=== PATIENT | female | born 1935 | race Caucasian/White ===

== ENCOUNTER 2017-05-30 06:59 | Day surgery (SDC) | payer OTHER ==
[2017-05-30 07:38] LABS: Protime INR 1.02
[2017-05-30] MEDS ORDERED: CYCLOPENTOLATE 1% OPTH 2 ML OPTH ONE ×2 (07:47→07:52)
[2017-05-30] MEDS ORDERED: PHENYLEPHRINE 10% OPTH 5ML OPTH ONE ×2 (07:47→07:52)
[2017-05-30] MEDS ORDERED: BUPIVACAINE 0.25% PF 10 ML VIAL ONE (07:50)
[2017-05-30] MEDS ORDERED: LIDOCAINE 2% MPF 5 ML VIAL ONE ×2 (07:50→08:28)
[2017-05-30] MEDS ORDERED: CYCLOPENTOLATE 1% OPTH 2 ML ONE (07:50)
[2017-05-30] MEDS ORDERED: TETRACAINE HCL 0.5% 2ML OPTH ONE (07:50)
[2017-05-30] MEDS ORDERED: NA CHLORIDE 0.9% 500 ML ONE (07:51)
[2017-05-30] MEDS ORDERED: PHENYLEPHRINE 10% OPTH 5ML ONE (07:51)
[2017-05-30] MEDS ORDERED: NS 0.9% VIAL 10 ML ONE (08:21)
[2017-05-30] MEDS ORDERED: DUOVISC 1 KIT OPTH ONE (08:22)
[2017-05-30] MEDS ORDERED: BALANCED SALT IRRIG PLAIN 500 ML BTL IRR ONE (08:22)
[2017-05-30] MEDS ORDERED: MOXIFLOXACIN HCL 10 DROPS/ML **OR USE OPTH ONE (08:27)
[2017-05-30] MEDS ORDERED: PROPOFOL 200 MG/20 ML VIAL IV ONE (08:28)
--- NOTE | 2017-05-30 08:46 | P.BOP ---
Preoperative diagnosis: Retained lens fragment OS Postoperative diagnosis: Same Primary procedure: Removal of lens fragment OS Estimated blood loss: None Anesthesia: Local (Subtenon's infusion with anethesia for eye surgery) Complications: None Implants: None Transferred to: Other (Day surgery) Condition: Good
[2017-05-30 09:01] VITALS: BP 111/54; TEMP 97; O2SAT 98
--- NOTE | 2017-05-30 19:18 | OP ---
Date of Procedure: 05/30/2017 Surgeon: Claudine Montoya MD Anesthesiologist: Josué Maria CRNA. Diagnosis: Retained lens fragment, OS (left eye). Procedure: Removal of lens fragment, OS (left eye). Anesthesia: Per eye surgery. Complications: None. Description Of Procedure: Patient's left eye was prepped with Betadine and draped. A 1:1 mixture of 2% Xylocaine and 0.25% bupivacaine was placed around the globe. Approximately 5 cc was used. The patient was brought to the operative room, where she was prepped and draped in the usual sterile fashion for ophthalmic surgery. A side-port incision was made superiorly and inferiorly. A bimanual I in A was used to removed the lens fragment. The incisions were inspected and found to be water tight. Vigamox was placed in the eye intra-camerally at the end of the procedure. No epinephrine was used for the procedure. Discharge Instructions: Ms. Lindo is discharged to home in good condition. She is to follow up with Dr. Montoya in the morning. LOGAN/PILAR Voice ID: [id number] Report ID: [id number] ANTON
== END 2017-05-30 09:21 | disposition home or self-care (01) ==
LOC: OR 06:59
PROVIDERS: ATTEND Ophthalmology Retina Specialist
PROC: 08P Eye, Removal (ICD-10-PCS; principal; 2017-05-30 08:30)
DX: H59.022 Cataract (lens) fragments in eye following cataract surgery, left eye (principal); H20.042 Secondary noninfectious iridocyclitis, left eye; H35.3130 Nonexudative age-related macular degeneration, bilateral, stage unspecified; H43.813 Vitreous degeneration, bilateral; I34.1 Nonrheumatic mitral (valve) prolapse; I10 Essential (primary) hypertension; I25.10 Atherosclerotic heart disease of native coronary artery without angina pectoris; M19.90 Unspecified osteoarthritis, unspecified site; E78.00 Pure hypercholesterolemia, unspecified; K21.9 Gastro-esophageal reflux disease without esophagitis; M81.0 Age-related osteoporosis without current pathological fracture; Z79.01 Long term (current) use of anticoagulants; Z88.8 Allergy status to other drugs, medicaments and biological substances; Z86.711 Personal history of pulmonary embolism; Z95.5 Presence of coronary angioplasty implant and graft; Z90.710 Acquired absence of both cervix and uterus; Z82.49 Family history of ischemic heart disease and other diseases of the circulatory system; Z82.3 Family history of stroke
CPT/HCPCS: 36415; 85610

== ENCOUNTER 2017-07-30 16:24 | Emergency (ER) | payer OTHER ==
--- NOTE | 2017-07-30 16:53 | RAD REPORT ---
EXAM DESCRIPTION: CT - [id number] - 07/30/2017 4:40 pm CLINICAL HISTORY: Fall, head and neck injury COMPARISON: MRI cervical spine July 2016 TECHNIQUE: Axial 5 mm thick images of the head were obtained. Axial 2 mm thick images of the cervic al spine were obtained with sagittal and coronal reconstruction images generated and reviewed. All CT scans are performed using dose optimization technique as appropriate and may include automated exposure control or mA/KV adjustment according to patient size. FINDINGS: No intracranial hemorrhage, mass, edema or acute intracranial finding. No acute cortical b ased infarction. Mild to moderate atrophy and mild chronic ischemic changes are present. Ventricular size is in proportion. No extra-axial fluid collections. Mastoid air cells and paranasal sinuses are clear. No globe or orbit abnormality seen. Cervical body height and alignment are normal. C5-6 disc space narrowing is present similar to the [facility] MRI study. No fracture or acute bony abnormality. C5-6 bony foraminal encroachment is present f rom uncovertebral joint hypertrophy. Central canal detail is inherently limited. No paraspinal mass or hematoma. IMPRESSION: Atrophy and chronic ischemic changes are present with no hemorrhage or other acute intra cranial finding. Cervical spine degenerative change as detailed. No fracture or acute finding seen.
--- NOTE | 2017-07-30 16:55 | RAD REPORT ---
EXAM DESCRIPTION: Shoulder Right 2 View - 07/30/2017 4:47 pm CLINICAL HISTORY: Fall, shoulder pain COMPARISON: None. TECHNIQUE: Internal and external rotation views of the right shoulder were obtained. FINDINGS: Transverse fracture of the surgical neck is present. There is evidence for impaction along the medial margin of the fracture. No pathologic bone process seen. No dislocation seen though there is probable laxity of the joint capsule. Acromial humeral joint space is widened. Posterior dislocat ion is doubtful. AC joint degenerative change present with clavicle and acromion inferiorly directed spurring. No rib or upper lung parenchymal acute finding. IMPRESSION: Two-view shoulder examination shows evidence for surgical neck fracture with probable im paction medial margin.
[2017-07-30] MEDS ORDERED: HYDROCODONE/APAP 10/325 TAB ONE ×2 (16:58→21:25)
[2017-07-30] MEDS ORDERED: ONDANSETRON 4 MG/2 ML VIAL ONE (17:11)
[2017-07-30] MEDS ORDERED: MORPHINE 4 MG/ML SYR ONE (17:11)
[2017-07-30] MEDS ORDERED: TETANUS & DIPHTHERIA TOX,ADULT 0.5 ML VIAL ONE (18:25)
[2017-07-30] MEDS ORDERED: LIDOCAINE 1% MPF 2 ML AMPULE ONE (18:39)
--- NOTE | 2017-07-30 18:55 | ER ---
Nurse's Notes [facility] Name: Kaitlin Lindo Age: 81 yrs Sex: Female : 1935 Arrival Date: 07/30/2017 Time: 16:31 Bed 24 Private MD: Hector Mcghee Diagnosis: Unspecified nondisplaced fracture of surgical neck of right humerus;Superficial injury of head;Other slipping, tripping and stumbling and falls;Laceration without foreign body of scalp Presentation: 07/30 16:32 Presenting complaint: EMS states: right shoulder pain due to fall. small laceration to tl3 back of scalp, no LOC. Transition of care: patient was not received from another setting of care. Onset of symptoms was July 30, 2017. Risk Assessment: Do you want to hurt yourself or someone else? Patient reports no desire to harm self or others. Initial Sepsis Screen: Does the patient meet any 2 criteria? No. Patient's initial sepsis screen is negative. Does the patient have a suspected source of infection? No. Patient's initial sepsis screen is negative. Care prior to arrival: sling. 16:32 Method Of Arrival: EMS: [facility] tl3 16:32 Acuity: IMANI 3 tl3 22:15 Mechanism of Injury: Fall. Trauma event details: Injury occurred in the [address], Injury occurred: at home. Injury occurred: July 30, 2017. Triage Assessment: 16:43 General: Appears uncomfortable, slender, well groomed, well developed, well nourished, tl3 Behavior is calm, cooperative, appropriate for age. Pain: Complains of pain in anterior aspect of right shoulder. EENT: No deficits noted. No signs and/or symptoms were reported regarding the EENT system. Neuro: No deficits noted. Level of Consciousness is awake, alert, obeys commands, Oriented to person, place, time, situation, Appropriate for age. Cardiovascular: No deficits noted. Heart tones S1 S2 present Patient's skin is warm and dry. Respiratory: No deficits noted. Airway is patent Respiratory effort is even, unlabored, Respiratory pattern is regular, symmetrical, Breath sounds are clear bilaterally. GI: No deficits noted. No signs and/or symptoms were reported involving the gastrointestinal system. : No deficits noted. No signs and/or symptoms were reported regarding the genitourinary system. Derm: No deficits noted. Wound noted back of scalp Wound is small laceration, no active bleeding. Musculoskeletal: Range of motion: limited in right shoulder. Injury Description: pt fell at home in the bedroom and landed on right shoulder then hit head on door frame, no LOC. Historical: - Home Meds: 16:43 vitamin E 400 unit Oral cap daily [Active]; cranberry 500 mg oral cap daily [Active]; tl3 xeralto 20 mg daily [Active]; - Immunization history:: Adult Immunizations up to date. - Social history:: Smoking status: Patient/guardian denies using tobacco, never smoked. - Immunization history: Last tetanus immunization: unknown. - Ebola Screening: : Patient denies travel to an Ebola-affected area in the 21 days before illness onset. Screenin:47 Abuse screen: Denies threats or abuse. Nutritional screening: No deficits noted. tl3 Tuberculosis screening: No symptoms or risk factors identified. Fall Risk Fall in past 12 months (25 points). Primary Survey: 20:30 Breathing/Chest: Respiratory pattern: regular, Respiratory effort: spontaneous, Breath eb1 sounds: clear. 22:08 Circulation: Cardiac rhythm: sinus rhythm. Circulation: Pulses: palpable right radial eb1 artery, right posterior tibial artery, left radial artery and left posterior tibial artery. Skin color: pink, Skin temperature: warm, dry. Disability Alert. 22:12 Reassessment Breathing/Chest Respiratory pattern Regular Respiratory effort Spontaneous eb1 Unlabored Breath sounds Clear Chest inspection Symmetrical Circulation. Assessment: 16:47 Reassessment: Patient is alert, oriented x 3, equal unlabored respirations, skin tl3 warm/dry/pink. pt just returned from CT and X-ray. 18:25 Reassessment: assisted patient onto bedpan and cleaned of small bowel incontinence. Pt ss is grateful. Respirations remain even and unlabored. Call light remains within reach. 18:58 Reassessment: Patient appears in no apparent distress at this time. No changes from tl3 previously documented assessment. Patient and/or family updated on plan of care and expected duration. Pain level reassessed. Patient is alert, oriented x 3, equal unlabored respirations, skin warm/dry/pink. pt tolerated laceration repair well. Vital Signs: 16:43 BP 146 / 125; Pulse 67; Resp 18; Temp 98.7(O); Pulse Ox 99% ; tl3 18:58 BP 167 / 143; Pulse 73; Resp 18; Pulse Ox 100% ; tl3 22:07 BP 147 / 82; Pulse 80; Resp 20; Temp 98.2; Pulse Ox 92% on R/A; Pain 2/10; eb1 22:07 Pain 2/10; eb1 Coulter Coma Score: 22:14 Eye Response: spontaneous(4). Verbal Response: oriented(5). Motor Response: obeys eb1 commands(6). Total: 15. Trauma Score (Adult): 22:08 Eye Response: spontaneous(1); Verbal Response: confused(1); Motor Response: obeys eb1 commands(2); Systolic BP: > 89 mm Hg(4); Respiratory Rate: 10 to 29 per min(4); Kris Score: 14; Trauma Score: 12 ED Course: 16:31 Patient arrived in ED. tl3 16:31 Hector Mcghee MD is Private Physician. tl3 16:32 Cori Avila, MINESH is Primary Nurse. tl3 16:32 Gamaliel Craft NP is PHCP. pm1 16:32 Ruben Mueller MD is Attending Physician. pm1 16:33 Triage completed. tl3 16:39 CT completed. Patient moved to CT via stretcher. Patient moved back from CT. cw1 16:40 CT Head C Spine In Process Unspecified. EDMS 16:43 Arm band placed on left wrist. tl3 16:47 Shoulder Right (2 View) XRAY In Process Unspecified. EDMS 16:47 Patient has correct armband on for positive identification. Bed in low position. Call tl3 light in reach. Side rails up X2. Pulse ox on. NIBP on. 16:47 No provider procedures requiring assistance completed. Inserted saline lock: 22 gauge tl3 in left antecubital area, using aseptic technique. 18:47 Christopher Edwards MD is Referral Physician. pm1 22:14 IV discontinued, intact, bleeding controlled, No redness/swelling at site. Pressure eb1 dressing applied. 22:16 Patient maintains SpO2 saturation greater than 95% on room air. eb1 22:17 Thermoregulation: warm blanket given to patient. 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 Exp: tl3 10/28/2019. Lot #: [id number]. } Route: IM; Site: left deltoid; 18:57 Follow up: Response: No adverse reaction tl3 18:57 Drug: Lidocaine (1 %) 20 ml {Note: per Gamaliel.} Volume: 20 ml; Route: Infiltration; tl3 Site: affected area; 18:58 Follow up: Response: No adverse reaction tl3 21:31 Drug: Meeker 5 mg-325 mg 1 tabs Route: PO; eb1 22:07 Follow up: Pain 2/10 Adult eb1 Intake: 22:15 PO: 100ml; Total: 100ml. eb1 Output: 22:15 Urine: 200ml; Total: 200ml. eb1 Outcome: 18:55 Discharge ordered by MD. pm1 22:13 Condition: good eb1 22:14 Discharged to home via wheelchair, with family. eb1 22:14 Discharge instructions given to patient, family. 22:15 Patient's length of stay in the Emergency Department was greater than 2 hours. awaiting eb1 family to take patient home Patient's length of stay extended due to 22:18 Patient left the ED. eb1 Signatures: Dispatcher [employer] EDMS Karen Warner RN RN ss Woodley, Crystal cw1 Gamaliel Craft NP APPIAN BPM DEVELOPER pm1 Cori Avila RN RN tl3 Jailene Alford RN RN eb1 Corrections: (The following items were deleted from the chart) 22:13 22:08 Breathing/Chest: Respiratory pattern: regular, Respiratory effort: spontaneous, eb1 Breath sounds: clear, eb1
--- NOTE | 2017-07-30 18:55 | EDPHYS ---
Physician Documentation [facility] Name: Kaitlin Lindo Age: 81 yrs Sex: Female : 1935 Arrival Date: 07/30/2017 Time: 16:31 Bed 24 Private MD: Hector Mcghee ED Physician Ruben Mueller HPI: 07/30 18:00 This 81 yrs old Female presents to ER via EMS with complaints of Shoulder pm1 Injury. 18:00 The patient or guardian complains of pain. right shoulder. Context: The problem was pm1 sustained at home, resulted from a fall, while walking. Onset: The symptoms/episode began/occurred just prior to arrival. Modifying factors: the symptoms are alleviated by remaining still, The symptoms are aggravated by nothing. Associated signs and symptoms: Pertinent negatives: Numbness in right arm tingling. Treatment prior to arrival includes: sling. Patient was walking and spun around to turn in the opposite direction. Patient lost her balance and landed on her right shoulder then hit her head against the door sill. Patient with pain to right shoulder and laceration to the back of her head. No LOC, neck pain. Patient with headache at location of laceration. No nausea or vomiting. Historical: - Home Meds: 16:43 vitamin E 400 unit Oral cap daily [Active]; cranberry 500 mg oral cap daily [Active]; tl3 xeralto 20 mg daily [Active]; - Immunization history:: Adult Immunizations up to date. - Social history:: Smoking status: Patient/guardian denies using tobacco, never smoked. - Immunization history: Last tetanus immunization: unknown. - Ebola Screening: : Patient denies travel to an Ebola-affected area in the 21 days before illness onset. ROS: 18:00 Constitutional: Negative for fever, chills, and weight loss, Eyes: Negative for injury, pm1 pain, redness, and discharge, ENT: Negative for injury, pain, and discharge, Neck: Negative for injury, pain, and swelling, Cardiovascular: Negative for chest pain, palpitations, and edema, Respiratory: Negative for shortness of breath, cough, wheezing, and pleuritic chest pain, Abdomen/GI: Negative for abdominal pain, nausea, vomiting, diarrhea, and constipation, Back: Negative for injury and pain, : Negative for injury, bleeding, discharge, and swelling. 18:00 MS/extremity: Positive for pain, of the right shoulder. 18:00 Skin: Positive for laceration(s), of the right side of the back of head. 18:00 Neuro: Positive for headache, Negative for loss of consciousness, numbness, tingling. Exam: 18:00 Constitutional: This is a well developed, well nourished patient who is awake, alert, pm1 and in no acute distress. 18:00 Eyes: Pupils equal round and reactive to light, extra-ocular motions intact. Lids and lashes normal. Conjunctiva and sclera are non-icteric and not injected. Cornea within normal limits. Periorbital areas with no swelling, redness, or edema. ENT: Nares patent. No nasal discharge, no septal abnormalities noted. Tympanic membranes are normal and external auditory canals are clear. Oropharynx with no redness, swelling, or masses, exudates, or evidence of obstruction, uvula midline. Mucous membranes moist. Neck: Trachea midline, no thyromegaly or masses palpated, and no cervical lymphadenopathy. Supple, full range of motion without nuchal rigidity, or vertebral point tenderness. No Meningismus. Chest/axilla: Normal chest wall appearance and motion. Nontender with no deformity. No lesions are appreciated. Cardiovascular: Regular rate and rhythm with a normal S1 and S2. No gallops, murmurs, or rubs. Normal PMI, no JVD. No pulse deficits. Respiratory: Lungs have equal breath sounds bilaterally, clear to auscultation and percussion. No rales, rhonchi or wheezes noted. No increased work of breathing, no retractions or nasal flaring. Abdomen/GI: Soft, non-tender, with normal bowel sounds. No distension or tympany. No guarding or rebound. No evidence of tenderness throughout. Back: No spinal tenderness. No costovertebral tenderness. Full range of motion. Skin: Warm, dry with normal turgor. Normal color with no rashes, no lesions, and no evidence of cellulitis. 18:00 Head/face: Noted is a laceration(s), that is superficial, 2 cm(s). 18:00 Musculoskeletal/extremity: Extremities: grossly normal except: noted in the right shoulder: pain. 18:00 Neuro: Orientation: is normal, Motor: moves all fours, Sensation: is normal, no obvious gross deficits. Vital Signs: 16:43 BP 146 / 125; Pulse 67; Resp 18; Temp 98.7(O); Pulse Ox 99% ; tl3 18:58 BP 167 / 143; Pulse 73; Resp 18; Pulse Ox 100% ; tl3 22:07 BP 147 / 82; Pulse 80; Resp 20; Temp 98.2; Pulse Ox 92% on R/A; Pain 2/10; eb1 22:07 Pain 2/10; eb1 Kris Coma Score: 22:14 Eye Response: spontaneous(4). Verbal Response: oriented(5). Motor Response: obeys eb1 commands(6). Total: 15. Trauma Score (Adult): 22:08 Eye Response: spontaneous(1); Verbal Response: confused(1); Motor Response: obeys eb1 commands(2); Systolic BP: > 89 mm Hg(4); Respiratory Rate: 10 to 29 per min(4); [place] Score: 14; Trauma Score: 12 Laceration: 18:46 Wound Repair of 3cm ( 1.2in ) subcutaneous laceration to right side of the back of pm1 head. Linear shaped.. Distal neuro/vascular/tendon intact. Anesthesia: Local anesthetic administered with 4 mls of 1% lidocaine. Wound prep: Extensive cleansing with hibiclenz by nurse, Wound irrigation with saline by nurse, Wound explored extensively, Copious irrigation. Skin closed with 6 1-0 Ally using staple gun. Patient tolerated well. MDM: 16:36 Patient medically screened. pm1 18:46 Data reviewed: vital signs. Data interpreted: Pulse oximetry: on room air is 99 %. pm1 Interpretation: normal. Counseling: I had a detailed discussion with the patient and/or guardian regarding: the historical points, exam findings, and any diagnostic results supporting the discharge/admit diagnosis, radiology results, the need for outpatient follow up, for definitive care, a orthopedic surgeon, to return to the emergency department if symptoms worsen or persist or if there are any questions or concerns that arise at home. 07/30 16:33 Order name: CT Head C Spine; Complete Time: 16:53 pm1 07/30 16:33 Order name: Shoulder Right (2 View) XRAY; Complete Time: 16:55 pm1 07/30 16:33 Order name: Dressing - Wound; Complete Time: 18:57 pm1 /02 16:33 Order name: Gloves, Sterile; Complete Time: 18:57 pm1 02 16:33 Order name: Setup Suture Tray; Complete Time: 18:57 pm1 02 16:54 Order name: Sling; Complete Time: 17:21 pm1 Administered Medications: 17:21 Not Given (Patient Refused): Sealevel 10 mg-325 mg 1 tabs PO once tl3 17:22 Drug: morphine 4 mg Route: IVP; Infused Over: 3 mins; Site: left antecubital; tl3 18:55 Follow up: Response: Pain is decreased tl3 17:22 Drug: Zofran 4 mg Route: IVP; Infused Over: 2 mins; Site: left antecubital; tl3 18:54 Follow up: Response: No adverse reaction tl3 18:55 Drug: Tetanus-Diphtheria Toxoid Adult 0.5 ml {Acid Bath Mixer: [employer] ([email or web address]). Exp: tl3 10/28/2019. Lot #: [id number]. } Route: IM; Site: left deltoid; 18:57 Follow up: Response: No adverse reaction tl3 18:57 Drug: Lidocaine (1 %) 20 ml {Note: per Gamaliel.} Volume: 20 ml; Route: Infiltration; tl3 Site: affected area; 18:58 Follow up: Response: No adverse reaction tl3 21:31 Drug: Sealevel 5 mg-325 mg 1 tabs Route: PO; eb1 22:07 Follow up: Pain 2/10 Adult eb1 Disposition: 07/31 12:37 Co-signature as Attending Physician, Ruben Mueller MD. Disposition: 07/30/17 18:55 Discharged to Home. Impression: Unspecified nondisplaced fracture of surgical neck of right humerus, Superficial injury of head, Other slipping, tripping and stumbling and falls, Laceration without foreign body of scalp. - Condition is Stable. - Discharge Instructions: Head Injury, Adult, Humerus Fracture, Treated with Immobilization, Stitches, [place], or Adhesive Wound Closure, Arm Sling Use, [id number]. - Prescriptions for Tramadol 50 mg Oral Tablet - take 1 tablet by ORAL route every 8 hours as needed; 20 tablet. - Medication Reconciliation Form, Thank You Letter, Prescription Opioid Use form. - Follow up: Emergency Department; When: As needed; Reason: Worsening of condition. Follow up: Christopher Edwards MD; When: 2 - 3 days; Reason: Recheck today's complaints, Continuance of care, Re-evaluation by your physician. - Problem is new. - Symptoms have improved. Signatures: Dispatcher [employer] EDMS Alma Smith RN RN aa1 Gamaliel Craft, INJECTION MOLDING SUPERVISOR INJECTION MOLDING SUPERVISOR pm1 Ruben Mueller MD MD Cori Avila RN RN tl3 Jailene Alford RN RN eb1 Corrections: (The following items were deleted from the chart) 07/30 18:57 18:55 07/30/2017 18:55 Discharged to Home. Impression: Unspecified nondisplaced pm1 fracture of surgical neck of right humerus. Condition is Stable. Forms are Medication Reconciliation Form, Thank You Letter, Antibiotic Education, Prescription Opioid Use. Follow up: Emergency Department; When: As needed; Reason: Worsening of condition. Follow up: Christopher Edwards; When: 2 - 3 days; Reason: Recheck today's complaints, Continuance of care, Re-evaluation by your physician. Problem is new. Symptoms have improved. pm1 22:18 18:57 07/30/2017 18:55 Discharged to Home. Impression: Unspecified nondisplaced eb1 fracture of surgical neck of right humerus; Superficial injury of head; Other slipping, tripping and stumbling and falls; Laceration without foreign body of scalp. Condition is Stable. Discharge Instructions: Humerus Fracture, Treated with Immobilization. Prescriptions for Tylenol-Codeine #3 300-30 mg Oral Tablet - take 2 tablets by ORAL route every 6 hours As needed; 20 tablet. and Forms are Medication Reconciliation Form, Thank You Letter, Prescription Opioid Use. Follow up: Emergency Department; When: As needed; Reason: Worsening of condition. Follow up: Christopher Edwards; When: 2 - 3 days; Reason: Recheck today's complaints, Continuance of care, Re-evaluation by your physician. Problem is new. Symptoms have improved. pm1
[2017-07-30] MEDS ORDERED: HYDROCODONE/APAP 5/325 MG TAB ONE (21:29)
[2017-07-30 22:50] VITALS: BP 147/82; TEMP 98.2; O2SAT 92
== END 2017-07-30 22:18 | disposition home or self-care (01) ==
LOC: ER 16:24
PROC: 0JQ00ZZ Repair Scalp Subcutaneous Tissue and Fascia, Open Approach (ICD-10-PCS; principal; 2017-07-30)
DX: S42.214A Unspecified nondisplaced fracture of surgical neck of right humerus, initial encounter for closed fracture (principal); S01.01XA Laceration without foreign body of scalp, initial encounter; W01.0XXA Fall on same level from slipping, tripping and stumbling without subsequent striking against object, initial encounter; Y93.01 Activity, walking, marching and hiking; Y92.009 Unspecified place in unspecified non-institutional (private) residence as the place of occurrence of the external cause; Z23 Encounter for immunization
CPT/HCPCS: 12002; 70450; 72125; 73030; 90714; 96374; 96375; 99285; J2001; J2405

== ENCOUNTER 2018-06-14 07:35 | Day surgery (SDC) | payer OTHER ==
[2018-06-14] MEDS ORDERED: Ringers Lactate 1,000 ML IV ONE (08:08)
[2018-06-14] MEDS: BUPIVACAINE 0.5% PF 10 ML VIAL ONE ×2 (08:19→09:23)
--- NOTE | 2018-06-14 08:28 | RAD REPORT ---
EXAM DESCRIPTION: RAD - Chest Pa And Lat (2 Views) - 06/14/2018 8:18 am CLINICAL HISTORY: PREOP Chest pain. COMPARISON: Chest Single View dated 05/08/2016; Chest Pa And Lat (2 Views) dated 03/13/2016; Chest Sin gle View dated 02/26/2016; Chest Single View dated 02/15/2016 FINDINGS: The lungs are clear. The heart is upper limit of normal in size. No displaced fractures.
--- NOTE | 2018-06-14 08:29 | EKG ---
Test Date: 2018-06-14 Test Time: 07:47:55 Dairy Worker: SARAI MEASUREMENT RESULTS: Intervals: Rate: 58 MT: 164 QRSD: 92 QT: 478 QTc: 469 [place]: P: 46 MT: 164 QRS: 66 T: 68 INTERPRETIVE STATEMENTS: Sinus bradycardia Otherwise normal ECG Compared to ECG 02/26/2016 01:54:05 Short MT interval no longer present Electronically Signed On 06-14-18 08:28:06 CDT by Kemal Arriaza
[2018-06-14 08:32] LABS: Absolute Monocytes 0.7 K/uL (0.1-1.3); Absolute Neutrophil 3.6 K/uL (1.8-8.0); Basophils % 0.6 % (0-1.3); Eosinophils % 2.5 % (0-4.4); Hematocrit 48.1 % (36.0-45.0); Lymphocytes % 18.1 % (15.3-44.8); MPV 7.4 fL (7.6-11.3); Monocytes % 13.1 % (3.3-12.3); RBC Red Blood Cell Count 5.32 M/uL (3.86-4.86)
[2018-06-14 08:37] LABS: Potassium 3.8 mmol/L (3.5-5.1)
[2018-06-14] MEDS ORDERED: CEFAZOLIN/SWI 1gm 1 GM/10 ML SYR ONE (08:37)
[2018-06-14] MEDS ORDERED: PROPOFOL 200 MG/20 ML VIAL IV ONE (09:20)
[2018-06-14] MEDS ORDERED: FENTANYL CITR 100 MCG/2 ML ONE (09:20)
[2018-06-14] MEDS ORDERED: MIDAZOLAM HCL 2 MG/2 ML INJ ONE (09:20)
[2018-06-14] MEDS ORDERED: LIDOCAINE 2% MPF 5 ML VIAL ONE (09:20)
[2018-06-14] MEDS ORDERED: ONDANSETRON 4 MG/2 ML VIAL ONE (09:38)
[2018-06-14] MEDS ORDERED: GLYCOPYRROLATE 0.2 MG/ML SYR ONE ×2 (09:49→09:51)
--- NOTE | 2018-06-14 09:58 | P.BOP ---
Preoperative diagnosis: left lateral chest infected subQ mass 3x3cm Postoperative diagnosis: same, mass with abscess Primary procedure: Excisional biopsy of left lateral chest infected subQ mass 3x3cm Secondary procedure: with abscess drainage Estimated blood loss: <5cc Specimen: mass and pus culture Findings: mass with abscess Anesthesia: General Complications: None Drain(s): Other (wet to dry NS) Transferred to: Recovery Room Condition: Good
[2018-06-14 10:03] VITALS: TEMP 98
[2018-06-14 10:24] VITALS: BP 119/59; O2SAT 94
--- NOTE | 2018-06-14 23:30 | DS ---
Date of Discharge: 06/14/2018 Diagnosis: Left lateral chest infected subcutaneous mass. Procedure: Excisional biopsy of left lateral chest infected subcutaneous mass with drainage of an ab scess. Disposition: Home. Activity: As tolerated. No heavy lifting. Followup: Follow up in my office in 1 week. Call for appointment [id number]. Discharge Instructions: Wet-to-dry dressing daily. The patient already has home health agencies. Medications: See orders. BOLIVAR/MODL Voice ID: [id number] Report ID: [id number]
--- NOTE | 2018-06-14 23:30 | OP ---
Date of Procedure: 06/14/2018 Surgeon: Altaf Cantu MD Preoperative Diagnosis: Left lateral chest infected subcutaneous mass, 3 x 3 cm. Postoperative Diagnosis: Left lateral chest infected subcutaneous mass, 3 x 3 cm. Procedure: Excisional biopsy of left lateral chest infected subcutaneous mass, 3 x 3 cm with drainag e of an abscess. Finding: Mass with abscess. Anesthesia: General plus local. Packing: Wet-to-dry normal saline. Indications: This is the case of an 82-year-old patient who comes with the lateral chest mass. It i s red, it is warm, it is tender. She states she has some there before, she is not sure. The benefit s, alternatives, and risks of excisional biopsy of infected subcutaneous mass was explained to the pa tient, which include but are not limited to infection, bleeding, damage to adjacent structures, compl ication, recurrence, TN, and even . She also understands this may not relieve any symptoms. Sh e might need more than one surgical intervention. She understands she will require wound care. She signed a consent. Description Of Procedure: The patient was brought to the operating room, placed in supine position. Anesthesia was done without complication. The patient was placed in lateral decubitus position with proper protection. The area of concern was previously marked by me and the patient in the holding r oom. So once we prepped and draped and obtained time-out, then we proceeded to make a wedge incision to include the affected skin that is also involved with ulceration. The mass was excised widely all the way down to deep fatty tissue. The area was cultured. The area was irrigated and packed with w et-to-dry dressing after local anesthetic. The patient tolerated the procedure well. The patient was sent to recovery in stable condition. BOLIVAR/PILAR Voice ID: [id number] Report ID: [id number]
== END 2018-06-14 11:45 | disposition home health service (06) ==
LOC: OR 07:35
PROVIDERS: ATTEND Surgery
PROC: 0JB60ZX Excision of Chest Subcutaneous Tissue and Fascia, Open Approach, Diagnostic (ICD-10-PCS; principal; 2018-06-14 09:15)
DX: L72.0 Epidermal cyst (principal); E78.5 Hyperlipidemia, unspecified; I10 Essential (primary) hypertension; I25.10 Atherosclerotic heart disease of native coronary artery without angina pectoris; I34.1 Nonrheumatic mitral (valve) prolapse; Z79.01 Long term (current) use of anticoagulants; Z79.899 Other long term (current) drug therapy; Z95.5 Presence of coronary angioplasty implant and graft; Z86.711 Personal history of pulmonary embolism
CPT/HCPCS: 11406; 93005; 87070; 85025; 80048; 36415; 87205; 82962; 88304; 87075; 71046; J2704; J3010; J0690; J2405; 88305; J2250

== ENCOUNTER 2019-05-06 14:25 | Emergency (ER) | payer OTHER ==
[2019-05-06 16:46] LABS: Protime INR 1.59
[2019-05-06 16:47] LABS: Lymphocytes % 14.4 % (15.3-44.8); MPV 7.6 fL (7.6-11.3); RBC Red Blood Cell Count 5.52 M/uL (3.86-4.86)
--- NOTE | 2019-05-06 17:08 | RAD REPORT ---
EXAM DESCRIPTION: RAD - Chest Single View - 05/06/2019 4:59 pm CLINICAL HISTORY: dizziness Chest pain. COMPARISON: Chest Pa And Lat (2 Views) dated 06/14/2018; Chest Single View dated 05/08/2016; Chest Pa And Lat (2 Views) dated 03/13/2016; Chest Single View dated 02/26/2016 FINDINGS: Portable technique limits examination quality. The lungs are grossly clear. The heart is normal in size. No displaced fractures. IMPRESSION: No acute intrathoracic process suspected.
--- NOTE | 2019-05-06 17:09 | RAD REPORT ---
EXAM DESCRIPTION: CT - Head Brain Wo Cont - 05/06/2019 5:03 pm CLINICAL HISTORY: dizziness Headache, drowsiness COMPARISON: Head Brain Wo Cont dated 02/26/2016 TECHNIQUE: All CT scans are performed using dose optimization technique as appropriate and may inclu de automated exposure control or mA/KV adjustment according to patient size. FINDINGS: No intracranial hemorrhage, hydrocephalus or extra-axial fluid collection.Mild generalized brain atrophy noted.No areas of brain edema or evidence of midline shift. The paranasal sinuses and mastoids are clear. The calvarium is intact. IMPRESSION: No acute intracranial abnormality.
[2019-05-06] MEDS ORDERED: NA CHLORIDE 0.9% 1,000 ML ONE (17:13)
[2019-05-06 17:14] LABS: ALT/SGPT 21 U/L (12-78); AST/SGOT 20 U/L (15-37); Albumin 3.8 g/dL (3.4-5.0); Alkaline Phosphatase 68 U/L (45-117); BUN Blood Urea Nitrogen 13 mg/dL (7-18); Bicarbonate 26 mmol/L (21-32); Bilirubin Direct < 0.1 mg/dL (0-0.2); Bilirubin Total 0.4 mg/dL (0.2-1.0); Glucose Level 116 mg/dL (74-106); Magnesium 2.1 mg/dL (1.8-2.4); NT PRO-BNP 725 pg/mL (<450); Potassium 4.1 mmol/L (3.5-5.1); Protein, Total 7.6 g/dL (6.4-8.2); Sodium Level 136 mmol/L (136-145); Troponin I < 0.02 ng/mL (0.0-0.045)
[2019-05-06 18:12] LABS: Urine Bacteria <20 /HPF (<20); Urine Culture Reflex Order NOT NEEDED; Urine RBC <5 /HPF (NONE SEEN)
--- NOTE | 2019-05-06 18:39 | ER ---
Nurse's Notes [facility] Name: Kaitlin Lindo Age: 83 yrs Sex: Female : 1935 Arrival Date: 05/06/2019 Time: 14:38 Bed 13 Private MD: Diagnosis: Dizziness and giddiness;Dehydration Presentation: 05/05 14:23 Chief complaint: EMS states: c/o of feeling dizzy, vertigo symptoms and high blood rb1 pressure. Started last night around 0300 subsided at 2030 last night, then the symptoms returned this morning. Denies pain or falls. BS 157. Coronavirus screen: The patient has NOT traveled to a country currently being monitored by the CDC within the last 14 days. The patient has NOT had contact with any known and/or suspected case of coronavirus. Ebola Screen: Patient negative for fever greater than or equal to 101.5 degrees Fahrenheit, and additional compatible Ebola Virus Disease symptoms. Initial Sepsis Screen: Does the patient meet any 2 criteria?. Risk Assessment: Do you want to hurt yourself or someone else? Patient reports no desire to harm self or others. 14:23 Method Of Arrival: EMS: [facility] rb1 14:23 Acuity: IMANI 3 rb1 14:30 Initial Sepsis Screen: Does the patient have a suspected source of infection? No. bp Patient's initial sepsis screen is negative. Onset of symptoms is unknown. Triage Assessment: 14:23 General: Appears in no apparent distress. comfortable, Behavior is calm, cooperative. rb1 Pain: Denies pain. Neuro: Level of Consciousness is awake, alert, obeys commands, Oriented to person, place, time, situation. Respiratory: Reports shortness of breath Airway is patent Respiratory effort is even, unlabored, Respiratory pattern is regular, symmetrical. GI: Reports nausea. Historical: - Allergies: 14:50 MICHELLE INHIBITORS; bp 14:50 Adrenalin; bp 14:50 Advair Diskus; bp 14:50 Cozaar; bp 14:50 Trazodone; bp 14:50 Toprol XL; bp 14:50 Kjlrdwp-Mwh-Zha Reductase Inhibitors; bp 14:50 PECANS; bp 14:50 PERFUMES; bp 14:50 DONEPEZIL; bp 14:50 Eggs; bp 14:50 Enalapril; bp 14:50 fenofibrate; bp 14:50 Hydrochlorothiazide; bp 14:50 MOLD; bp 14:50 Nitrofurantoin Macrocrystal; bp - PMHx: 14:50 CARDIAC ARRHYTHMIAS; Hypertension; MACULAR DEGENERATION W/ INJECTIONS RIGHT EYE; mitral bp valve prolapse; MULTI BLOOD CLOTS BILAT LUNGS/LUPUS ANTICOAGULANT; VIRAL PERICARDITIS; - Immunization history:: Adult Immunizations up to date. - Social history:: Smoking status: Patient/guardian denies using. Screenin:30 Abuse screen: Denies threats or abuse. Denies injuries from another. Nutritional bp screening: No deficits noted. Tuberculosis screening: No symptoms or risk factors identified. Fall Risk None identified. Assessment: 14:30 General: SEE TRIAGE NOTE. bp 15:30 Reassessment: VS STABLE ON MONITOR, NO NEURO DEFICITS OR ATAXIA NOTED. bp 16:51 Reassessment: PT ORTHOSTATIC NEGATIVE. 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 bp 18:55 Reassessment: PT D/C HOME VIA W/C WITH FAMILY, DX WITH DIZZINESS AND DEHYDRATION. bp Vital Signs: 14:23 BP 176 / 64; Pulse 70; Resp 14; Pulse Ox 97% on R/A; Weight 72.57 kg (R); Height 5 ft. rb1 3 in. (160.02 cm) (R); Pain 0/10; 14:30 BP 135 / 65; Pulse 57; Resp 15; Pulse Ox 94% ; bp 15:30 BP 143 / 77; Pulse 56; Resp 13; Pulse Ox 95% ; bp 16:30 BP 150 / 68; Pulse 54; Resp 14; Pulse Ox 96% ; bp 16:40 BP 144 / 69 Supine; Pulse 53; bp 16:45 BP 142 / 89 Sitting; Pulse 60; bp 16:50 BP 135 / 75 Standing; Pulse 61; bp 17:30 BP 156 / 63; Pulse 47; Resp 16; Pulse Ox 95% ; bp 18:55 BP 166 / 69; Pulse 64; Resp 17; Temp 98; Pulse Ox 97% ; bp 14:23 Body Mass Index 28.34 (72.57 kg, 160.02 cm) rb1 ED Course: 14:30 Patient has correct armband on for positive identification. Bed in low position. Call bp light in reach. Side rails up X2. Adult w/ patient. 14:38 Patient arrived in ED. rb1 14:42 Triage completed. rb1 14:47 Johan Shah, RN is Primary Nurse. bp 14:48 Gamaliel Craft NP is PHCP. pm1 14:48 Darvin Guzman MD is Attending Physician. pm1 14:50 Arm band placed on. bp 16:20 Inserted saline lock: 20 gauge in right antecubital area, using aseptic technique. bp Blood collected. 17:00 Chest Single View In Process Unspecified. EDMS 17:04 Head Brain Wo Cont In Process Unspecified. EDMS 18:38 Hardik Morales MD is Referral Physician. pm1 18:56 No provider procedures requiring assistance completed. IV discontinued, intact, bp bleeding controlled, No redness/swelling at site. Pressure dressing applied. Administered Medications: 17:10 Drug: NS 0.9% 1000 ml Route: IV; Rate: 1000 ml; Site: right antecubital; bp 18:58 Follow up: IV Status: Completed infusion; IV Intake: 1000ml bp Intake: 18:58 IV: 1000ml; Total: 1000ml. bp Outcome: 18:38 Discharge ordered by MD. pm1 18:56 Discharged to home via wheelchair, with family. bp 18:56 Condition: stable 18:56 Discharge instructions given to patient, Instructed on discharge instructions, follow up and referral plans. medication usage, Demonstrated understanding of instructions, follow-up care, medications, Prescriptions given X 1. 19:06 Patient left the ED. lp1 Signatures: Dispatcher [employer] Catie García RN RN lp1 Yissel Johnson RN RN rb1 Gamaliel Craft NP CALCIMINER pm1 Johan Shah, MINESH RN bp
--- NOTE | 2019-05-06 18:39 | EDPHYS ---
Physician Documentation [facility] Name: Kaitlin Lindo Age: 83 yrs Sex: Female : 1935 Arrival Date: 05/06/2019 Time: 14:38 Bed 13 Private MD: ED Physician Darvin Guzman HPI: 05/05 17:43 This 83 yrs old Female presents to ER via EMS with complaints of Dizziness. pm1 17:43 The patient presents with feeling off balance. Onset: The symptoms/episode pm1 began/occurred yesterday, 1500. Context: occurred while the patient was standing, possibly changing position. Modifying factors: The symptoms are alleviated by staying still, the symptoms are aggravated by standing up, changing position. Associated signs and symptoms: Pertinent negatives: abdominal pain, chest pain, headache, nausea, numbness, shortness of breath, tingling, vomiting. Severity of symptoms: in the emergency department the symptoms have improved. The patient has experienced similar episodes in the past, a few times, and the symptoms today are exactly the same, to when the patient was apparently diagnosed with UTI. Historical: - Allergies: 14:50 MICHELLE INHIBITORS; bp 14:50 Adrenalin; bp 14:50 Advair Diskus; bp 14:50 Cozaar; bp 14:50 Trazodone; bp 14:50 Toprol XL; bp 14:50 Govpcrc-Nyb-Gqu Reductase Inhibitors; bp 14:50 PECANS; bp 14:50 PERFUMES; bp 14:50 DONEPEZIL; bp 14:50 Eggs; bp 14:50 Enalapril; bp 14:50 fenofibrate; bp 14:50 Hydrochlorothiazide; bp 14:50 MOLD; bp 14:50 Nitrofurantoin Macrocrystal; bp - PMHx: 14:50 CARDIAC ARRHYTHMIAS; Hypertension; MACULAR DEGENERATION W/ INJECTIONS RIGHT EYE; mitral bp valve prolapse; MULTI BLOOD CLOTS BILAT LUNGS/LUPUS ANTICOAGULANT; VIRAL PERICARDITIS; - Immunization history:: Adult Immunizations up to date. - Social history:: Smoking status: Patient/guardian denies using. ROS: 17:43 Constitutional: Negative for fever, chills, and weight loss, ENT: Negative for injury, pm1 pain, and discharge, Neck: Negative for injury, pain, and swelling, Cardiovascular: Negative for chest pain, palpitations, and edema, Respiratory: Negative for shortness of breath, cough, wheezing, and pleuritic chest pain, Abdomen/GI: Negative for abdominal pain, nausea, vomiting, diarrhea, and constipation, : Negative for injury, bleeding, discharge, and swelling, MS/Extremity: Negative for injury and deformity, Skin: Negative for injury, rash, and discoloration. 17:43 Back: Positive for of the low back area, pain. 17:43 Neuro: Positive for dizziness, Negative for altered mental status, headache, numbness, syncope, near syncope, tingling, weakness. Exam: 17:43 Constitutional: This is a well developed, well nourished patient who is awake, alert, pm1 and in no acute distress. Head/Face: Normocephalic, atraumatic. Neck: Trachea midline, no thyromegaly or masses palpated, and no cervical lymphadenopathy. Supple, full range of motion without nuchal rigidity, or vertebral point tenderness. No Meningismus. Chest/axilla: Normal chest wall appearance and motion. Nontender with no deformity. No lesions are appreciated. Cardiovascular: Regular rate and rhythm with a normal S1 and S2. No gallops, murmurs, or rubs. No pulse deficits. Respiratory: Lungs have equal breath sounds bilaterally, clear to auscultation and percussion. No rales, rhonchi or wheezes noted. No increased work of breathing, no retractions or nasal flaring. Abdomen/GI: Soft, non-tender, with normal bowel sounds. No distension or tympany. No guarding or rebound. No evidence of tenderness throughout. Back: No spinal tenderness. No costovertebral tenderness. Full range of motion. Skin: Warm, dry with normal turgor. Normal color with no rashes, no lesions, and no evidence of cellulitis. MS/ Extremity: Pulses equal, no cyanosis. Neurovascular intact. Full, normal range of motion. 17:43 Neuro: Orientation: is normal, Mentation: is normal, Motor: is normal, moves all fours. Vital Signs: 14:23 BP 176 / 64; Pulse 70; Resp 14; Pulse Ox 97% on R/A; Weight 72.57 kg (R); Height 5 ft. rb1 3 in. (160.02 cm) (R); Pain 0/10; 14:30 BP 135 / 65; Pulse 57; Resp 15; Pulse Ox 94% ; bp 15:30 BP 143 / 77; Pulse 56; Resp 13; Pulse Ox 95% ; bp 16:30 BP 150 / 68; Pulse 54; Resp 14; Pulse Ox 96% ; bp 16:40 BP 144 / 69 Supine; Pulse 53; bp 16:45 BP 142 / 89 Sitting; Pulse 60; bp 16:50 BP 135 / 75 Standing; Pulse 61; bp 17:30 BP 156 / 63; Pulse 47; Resp 16; Pulse Ox 95% ; bp 18:55 BP 166 / 69; Pulse 64; Resp 17; Temp 98; Pulse Ox 97% ; bp 14:23 Body Mass Index 28.34 (72.57 kg, 160.02 cm) rb1 MDM: 14:48 Patient medically screened. pm1 17:47 Data reviewed: vital signs. Data interpreted: Pulse oximetry: on room air is 95 %. pm1 Interpretation: normal. 18:27 Counseling: I had a detailed discussion with the patient and/or guardian regarding: the pm1 historical points, exam findings, and any diagnostic results supporting the discharge/admit diagnosis, lab results, radiology results. ED course: Patient reports that both of her sisters had Meniere's disease. 18:35 Differential diagnosis: CVA, generalized weakness, idiopathic dizziness, UTI, BPPV, pm1 Meniere's, dehydration, orthostasis . 05/05 16:36 Order name: Basic Metabolic Panel; Complete Time: 17:24 EDMS 05/05 16:36 Order name: Liver (Hepatic) Function; Complete Time: 17:24 EDMS 05/05 16:36 Order name: Troponin I; Complete Time: 17:24 EDMS 08 16:37 Order name: NT PRO-BNP; Complete Time: 17:24 EDMS 08 16:37 Order name: Magnesium; Complete Time: 17:24 EDMS 08 16:37 Order name: CBC with Automated Diff; Complete Time: 16:59 EDMS 08 16:37 Order name: Protime (+INR); Complete Time: 17:24 EDMS 08 15:14 Order name: EKG; Complete Time: 17:19 pm1 05/05 15:14 Order name: Cardiac monitoring; Complete Time: 16:55 pm1 05/05 15:14 Order name: EKG - Nurse/Tech; Complete Time: 16:55 pm1 05/05 15:14 Order name: IV Saline Lock; Complete Time: 16:55 pm1 05/05 15:14 Order name: Labs collected and sent; Complete Time: 16:55 pm1 05/05 15:14 Order name: O2 Per Protocol; Complete Time: 16:55 pm1 05/05 15:14 Order name: O2 Sat Monitoring; Complete Time: 16:55 pm1 05/05 15:25 Order name: Orthostatics; Complete Time: 16:55 pm1 05/05 16:44 Order name: Chest Single View; Complete Time: 17:24 EDMS 05/05 16:47 Order name: Head Brain Wo Cont; Complete Time: 17:24 EDMS 05/05 17:26 Order name: Urine Microscopic Only; Complete Time: 18:15 pm1 05/05 17:49 Order name: Urine Dipstick--Ancillary (enter results) eb 05/05 17:26 Order name: Urine Dipstick-Ancillary (obtain specimen); Complete Time: 17:33 pm1 Administered Medications: 17:10 Drug: NS 0.9% 1000 ml Route: IV; Rate: 1000 ml; Site: right antecubital; bp 18:58 Follow up: IV Status: Completed infusion; IV Intake: 1000ml bp Disposition: 05/06 07:02 Co-signature as Attending Physician, Darvin Guzman MD. rn Disposition: 05/06/19 18:38 Discharged to Home. Impression: Dizziness and giddiness, Dehydration. - Condition is Stable. - Discharge Instructions: Dehydration, Elderly, Dizziness, Rehydration, Elderly. - Prescriptions for Meclizine 25 mg Oral Tablet - take 1 tablet by ORAL route every 8 hours As needed; 30 tablet. - Medication Reconciliation Form, Thank You Letter, Antibiotic Education, Prescription Opioid Use form. - Follow up: Emergency Department; When: As needed; Reason: Worsening of condition. Follow up: Private Physician; When: 2 - 3 days; Reason: Recheck today's complaints, Continuance of care, Re-evaluation by your physician. Follow up: Hardik Morales MD; When: 2 - 3 days; Reason: Recheck today's complaints, Continuance of care, Re-evaluation by your physician. - Problem is new. - Symptoms have improved. Signatures: [facility] ED[facility] Darvin Guzman MD MD rn Pena, Laura, RN RN lp1 Yissel Johnson, RN RN rb1 Gamaliel Craft, SILVERWARE BUFFING MACHINE OPERATOR SILVERWARE BUFFING MACHINE OPERATOR pm1 Johan Shah RN RN bp Corrections: (The following items were deleted from the chart) 03 16:47 16:44 CT-HEAD/BRAIN W/O CONTRAST ordered. EDID EDMS 17:27 17:19 Chest Single View+RAD.RAD.BRZ ordered. EDID EDMS 17:33 17:19 Head Brain Wo Cont+CT.RAD.BRZ ordered. EDID EDMS 18:38 18:38 05/06/2019 18:38 Discharged to Home. Impression: Dizziness and giddiness; pm1 Dehydration. Condition is Stable. Forms are Medication Reconciliation Form, Thank You Letter, Antibiotic Education, Prescription Opioid Use. Follow up: Emergency Department; When: As needed; Reason: Worsening of condition. Follow up: Private Physician; When: 2 - 3 days; Reason: Recheck today's complaints, Continuance of care, Re-evaluation by your physician. Problem is new. Symptoms have improved. pm1 19:06 18:38 05/06/2019 18:38 Discharged to Home. Impression: Dizziness and giddiness; lp1 Dehydration. Condition is Stable. Discharge Instructions: Dehydration, Elderly, Dizziness, Rehydration, Elderly. Prescriptions for Meclizine 25 mg Oral Tablet - take 1 tablet by ORAL route every 8 hours As needed; 30 tablet. and Forms are Medication Reconciliation Form, Thank You Letter, Antibiotic Education, Prescription Opioid Use. Follow up: Emergency Department; When: As needed; Reason: Worsening of condition. Follow up: Private Physician; When: 2 - 3 days; Reason: Recheck today's complaints, Continuance of care, Re-evaluation by your physician. Follow up: Hardik Morales; When: 2 - 3 days; Reason: Recheck today's complaints, Continuance of care, Re-evaluation by your physician. Problem is new. Symptoms have improved. pm1
[2019-05-06 19:34] VITALS: BP 166/69; TEMP 98; O2SAT 97
[2019-05-06 20:34] LABS: Urine Blood TRACE (NEG); Urine Glucose NEGATIVE (NEG); Urine Protein TRACE (NEG); Urine Specific Gravity 1.015 (1.005-1.030)
--- NOTE | 2019-05-07 07:49 | EKG ---
Test Date: 2019-05-06 Test Time: 15:05:19 Template Checker: ZHOU MEASUREMENT RESULTS: Intervals: Rate: 55 CO: 134 QRSD: 112 QT: 488 QTc: 466 [place]: P: 97 CO: 134 QRS: 87 T: 71 INTERPRETIVE STATEMENTS: Sinus bradycardia Low voltage QRS Right bundle branch block Septal infarct, age undetermined Abnormal ECG Compared to ECG 06/14/2018 07:47:55 Low QRS voltage now present Right bundle-branch block now present Myocardial infarct finding now present Electronically Signed On 05-07-19 07:49:32 CDT by Kemal Arriaza
== END 2019-05-06 19:06 | disposition home or self-care (01) ==
LOC: ER 14:25
DX: E86.0 Dehydration (principal); I10 Essential (primary) hypertension; I34.1 Nonrheumatic mitral (valve) prolapse; Z88.5 Allergy status to narcotic agent; Z88.8 Allergy status to other drugs, medicaments and biological substances; Z91.012 Allergy to eggs; Z91.018 Allergy to other foods; Z91.048 Other nonmedicinal substance allergy status
CPT/HCPCS: 96361; 93005; 85025; 80048; 36415; 83735; 85610; 80076; 84484; 83880; 70450; 71045; 96360; 99284; J7030; 81003; 81015

== ENCOUNTER 2019-08-28 10:44 | Emergency (ER) | payer OTHER ==
[2019-08-28] MEDS ORDERED: CIPROFLOXACIN HCL 500 MG TAB ONE (11:42)
--- NOTE | 2019-08-28 12:16 | ER ---
Nurse's Notes [facility] Name: Kaitlin Lindo Age: 83 yrs Sex: Female : 1935 Arrival Date: 08/28/2019 Time: 10:45 Bed 20 Private MD: Diagnosis: Urinary tract infection, site not specified;Dysuria Presentation: 08/27 10:52 Chief complaint: EMS states: DYSURIA AND FREQUENCY SINCE 0300. Coronavirus screen: bp Proceed with normal triage. Ebola Screen: No symptoms or risks identified at this time. Initial Sepsis Screen: Does the patient meet any 2 criteria? No. Patient's initial sepsis screen is negative. Does the patient have a suspected source of infection? No. Patient's initial sepsis screen is negative. Risk Assessment: Do you want to hurt yourself or someone else? Patient reports no desire to harm self or others. Onset of symptoms was August 28, 2019 at 03:00. 10:52 Method Of Arrival: EMS: [facility] bp 10:52 Acuity: IMANI 3 bp Triage Assessment: 10:59 General: Appears in no apparent distress. uncomfortable, Behavior is calm, cooperative, bp appropriate for age. Pain: Denies pain. EENT: No deficits noted. Neuro: No deficits noted. Cardiovascular: No deficits noted. Respiratory: No deficits noted. GI: No signs and/or symptoms were reported involving the gastrointestinal system. : Reports burning with urination, urinary frequency. Derm: No deficits noted. Musculoskeletal: No deficits noted. Historical: - Allergies: 10:59 MICHELLE INHIBITORS; bp 10:59 Adrenalin; bp 10:59 Advair Diskus; bp 10:59 Cozaar; bp 10:59 DONEPEZIL; bp 10:59 Eggs; bp 10:59 Enalapril; bp 10:59 fenofibrate; bp 10:59 Hydrochlorothiazide; bp 10:59 MOLD; bp 10:59 Nitrofurantoin Macrocrystal; bp 10:59 PECANS; bp 10:59 PERFUMES; bp 10:59 Khhfqjq-Sew-Icr Reductase Inhibitors; bp 10:59 Toprol XL; bp 10:59 Trazodone; bp - Home Meds: 10:59 omeprazole 40 mg Oral cpDR 1 cap once daily [Active]; verapamil 240 mg Oral TbER 1 tab bp twice a day [Active]; niacin 500 mg Oral Tb24 1 tab once daily [Active]; Fish Oil Oral 3 tab daily [Active]; memantine 5 mg Oral tab 1 tabs 2 times per day [Active]; Linzess 145 mcg oral cap 1 cap once daily [Active]; benzonatate 200 mg oral cap [Active]; Xarelto 20 mg oral tab 1 tab once daily [Active]; magnesium oxide 500 mg Oral cap [Active]; cranberry 500 mg Oral cap daily [Active]; Benadryl 50 mg as needed for sleep Oral as needed for insomnia [Active]; - PMHx: 10:59 MULTI BLOOD CLOTS BILAT LUNGS/LUPUS ANTICOAGULANT; VIRAL PERICARDITIS; mitral valve bp prolapse; MACULAR DEGENERATION W/ INJECTIONS RIGHT EYE; CARDIAC ARRHYTHMIAS; Hypertension; - Immunization history:: Adult Immunizations up to date. - Social history:: Smoking status: Patient denies any tobacco usage or history of. Screenin:59 Abuse screen: Denies threats or abuse. Denies injuries from another. Nutritional bp screening: No deficits noted. Tuberculosis screening: No symptoms or risk factors identified. Fall Risk None identified. Assessment: 10:59 General: SEE TRIAGE NOTE. bp 12:38 Reassessment: Patient appears in no apparent distress at this time. Patient and/or ss family updated on plan of care and expected duration. Pain level reassessed. Patient is alert, oriented x 3, equal unlabored respirations, skin warm/dry/pink. Vital Signs: 10:52 BP 150 / 80; Pulse 75; Resp 17; Temp 98; Pulse Ox 96% ; bp 11:42 BP 124 / 61; Pulse 63; Resp 16; Pulse Ox 95% ; bp ED Course: 10:45 Patient arrived in ED. bp 10:48 Abdiel Telles MD is Attending Physician. kdr 10:52 Johan Shah, MINESH is Primary Nurse. bp 10:53 Triage completed. bp 10:59 Arm band placed on. bp 10:59 Patient has correct armband on for positive identification. Bed in low position. Call bp light in reach. Side rails up X2. 12:38 No provider procedures requiring assistance completed. Patient did not have IV access ss during this emergency room visit. Administered Medications: 11:20 Drug: Cipro 500 mg Route: PO; bp Outcome: 12:16 Discharge ordered by . kdr 12:38 Discharged to home via wheelchair, with family. 12:38 Condition: good 12:38 Discharge instructions given to patient, Instructed on discharge instructions, follow up and referral plans. medication usage, Demonstrated understanding of instructions, follow-up care, medications, Prescriptions given X 1. 12:39 Patient left the ED. Addendum: 09/01/2019 07:55 Addendum: Culture Results: Positive urine culture. No further action required. Bacteria d m5 sensitive to prescribed antibiotic. Signatures: Rody Macario, RN RN dm5 Abdiel Telles MD MD kdr Karen Warner RN RN ss Johan Shah RN RN bp
--- NOTE | 2019-08-28 12:17 | EDPHYS ---
Physician Documentation [facility] Name: Kaitlin Lindo Age: 83 yrs Sex: Female : 1935 Arrival Date: 08/28/2019 Time: 10:45 Bed 20 Private MD: ED Physician Abdiel Telles HPI: 08/27 11:27 This 83 yrs old Female presents to ER via EMS with complaints of Pain With kdr Urination. 11:27 The patient presents with urinary symptoms, dysuria, frequency, urgency. Onset: The kdr symptoms/episode began/occurred suddenly, at 03:00. Modifying factors: The symptoms are alleviated by nothing. 16:14 Associated signs and symptoms: Pertinent positives: dysuria, urinary frequency, kdr Pertinent negatives: constipation, cramping, diarrhea, fever, hematuria, nausea. Severity of symptoms: At their worst the symptoms were mild, in the emergency department the symptoms are unchanged. The patient has experienced similar episodes in the past, multiple times. The patient has not recently seen a physician. Historical: - Allergies: 10:59 MICHELLE INHIBITORS; bp 10:59 Adrenalin; bp 10:59 Advair Diskus; bp 10:59 Cozaar; bp 10:59 DONEPEZIL; bp 10:59 Eggs; bp 10:59 Enalapril; bp 10:59 fenofibrate; bp 10:59 Hydrochlorothiazide; bp 10:59 MOLD; bp 10:59 Nitrofurantoin Macrocrystal; bp 10:59 PECANS; bp 10:59 PERFUMES; bp 10:59 Vhhexfx-Tyc-Bae Reductase Inhibitors; bp 10:59 Toprol XL; bp 10:59 Trazodone; bp - Home Meds: 10:59 omeprazole 40 mg Oral cpDR 1 cap once daily [Active]; verapamil 240 mg Oral TbER 1 tab bp twice a day [Active]; niacin 500 mg Oral Tb24 1 tab once daily [Active]; Fish Oil Oral 3 tab daily [Active]; memantine 5 mg Oral tab 1 tabs 2 times per day [Active]; Linzess 145 mcg oral cap 1 cap once daily [Active]; benzonatate 200 mg oral cap [Active]; Xarelto 20 mg oral tab 1 tab once daily [Active]; magnesium oxide 500 mg Oral cap [Active]; cranberry 500 mg Oral cap daily [Active]; Benadryl 50 mg as needed for sleep Oral as needed for insomnia [Active]; - PMHx: 10:59 MULTI BLOOD CLOTS BILAT LUNGS/LUPUS ANTICOAGULANT; VIRAL PERICARDITIS; mitral valve bp prolapse; MACULAR DEGENERATION W/ INJECTIONS RIGHT EYE; CARDIAC ARRHYTHMIAS; Hypertension; - Immunization history:: Adult Immunizations up to date. - Social history:: Smoking status: Patient denies any tobacco usage or history of. ROS: 16:14 Constitutional: Negative for fever, chills, and weight loss, Eyes: Negative for injury, kdr pain, redness, and discharge, Neck: Negative for injury, pain, and swelling, Cardiovascular: Negative for chest pain, palpitations, and edema, Respiratory: Negative for shortness of breath, cough, wheezing, and pleuritic chest pain, Abdomen/GI: Negative for abdominal pain, nausea, vomiting, diarrhea, and constipation, Back: Negative for injury and pain, MS/Extremity: Negative for injury and deformity, Skin: Negative for injury, rash, and discoloration, Neuro: Negative for headache, weakness, numbness, tingling, and seizure activity. Psych: Negative for depression, anxiety, suicide ideation, homicidal ideation, and hallucinations, Allergy/Immunology: Negative for hives, rash, and allergies, Endocrine: Negative for neck swelling, polydipsia, polyuria, polyphagia, and marked weight changes, Hematologic/Lymphatic: Negative for swollen nodes, abnormal bleeding, and unusual bruising. 16:14 : Positive for urinary symptoms, burning with urination. Exam: 16:14 Constitutional: This is a well developed, well nourished patient who is awake, alert, kdr and in no acute distress. Head/Face: Normocephalic, atraumatic. Eyes: Pupils equal round and reactive to light, extra-ocular motions intact. Lids and lashes normal. Conjunctiva and sclera are non-icteric and not injected. Cornea within normal limits. Periorbital areas with no swelling, redness, or edema. Neck: Trachea midline, no thyromegaly or masses palpated, and no cervical lymphadenopathy. Supple, full range of motion without nuchal rigidity, or vertebral point tenderness. No Meningismus. Chest/axilla: Normal chest wall appearance and motion. Nontender with no deformity. No lesions are appreciated. Cardiovascular: Regular rate and rhythm with a normal S1 and S2. No gallops, murmurs, or rubs. Normal PMI, no JVD. No pulse deficits. Respiratory: Lungs have equal breath sounds bilaterally, clear to auscultation and percussion. No rales, rhonchi or wheezes noted. No increased work of breathing, no retractions or nasal flaring. Abdomen/GI: Soft, non-tender, with normal bowel sounds. No distension or tympany. No guarding or rebound. No evidence of tenderness throughout. Back: No spinal tenderness. No costovertebral tenderness. Full range of motion. Skin: Warm, dry with normal turgor. Normal color with no rashes, no lesions, and no evidence of cellulitis. MS/ Extremity: Pulses equal, no cyanosis. Neurovascular intact. Full, normal range of motion. Neuro: Awake and alert, GCS 15, oriented to person, place, time, and situation. Cranial nerves II-XII grossly intact. Motor strength 5/5 in all extremities. Sensory grossly intact. Cerebellar exam normal. Normal gait. Psych: Awake, alert, with orientation to person, place and time. Behavior, mood, and affect are within normal limits. Vital Signs: 10:52 BP 150 / 80; Pulse 75; Resp 17; Temp 98; Pulse Ox 96% ; bp 11:42 BP 124 / 61; Pulse 63; Resp 16; Pulse Ox 95% ; bp MDM: 12:16 Patient medically screened. [facility] 16:14 Data reviewed: vital signs, nurses notes, lab test result(s), radiologic studies. kdr Counseling: I had a detailed discussion with the patient and/or guardian regarding: the historical points, exam findings, and any diagnostic results supporting the discharge/admit diagnosis, lab results, the need for outpatient follow up. 08/27 11:14 Order name: Urine Culture [facility] 08/27 11:28 Order name: Urine Microscopic Only 08/27 11:14 Order name: Urine Dipstick-Ancillary (obtain specimen); Complete Time: 11:40 kdr 08/27 11:59 Order name: Urine Dipstick--Ancillary (enter results) Administered Medications: 11:20 Drug: Cipro 500 mg Route: PO; bp Disposition: 08/28/19 12:16 Discharged to Home. Impression: Urinary tract infection, site not specified, Dysuria. - Condition is Stable. - Discharge Instructions: Urinary Tract Infection, Adult, Hpnj-ma-Qybr. - Prescriptions for Cipro 500 mg Oral Tablet - take 1 tablet by ORAL route every 12 hours for 7 days; 14 tablet. - Medication Reconciliation Form, Thank You Letter, Antibiotic Education form. - Follow up: Private Physician; When: 2 - 3 days; Reason: If symptoms return, Further diagnostic work-up, Recheck today's complaints, Continuance of care, Re-evaluation by your physician. - Problem is an acute exacerbation. - Symptoms have improved. Signatures: Dispatcher [employer] EDME Abdiel Telles MD MD kdr Karen Warner RN RN ss Johan Shah RN RN bp Corrections: (The following items were deleted from the chart) 12:39 12:16 08/28/2019 12:16 Discharged to Home. Impression: Urinary tract infection, site ss not specified; Dysuria. Condition is Stable. Forms are Medication Reconciliation Form, Thank You Letter, Antibiotic Education, Prescription Opioid Use. Follow up: Private Physician; When: 2 - 3 days; Reason: If symptoms return, Further diagnostic work-up, Recheck today's complaints, Continuance of care, Re-evaluation by your physician. Problem is an acute exacerbation. Symptoms have improved. kdr
[2019-08-28 12:33] LABS: Urine Bacteria >50 /HPF (<20); Urine Culture Reflex Order NOT NEEDED; Urine RBC >50 /HPF (NONE SEEN)
[2019-08-28 12:40] LABS: Urine Blood 2+ (NEG); Urine Glucose NEGATIVE (NEG); Urine Protein 2+ (NEG); Urine Specific Gravity 1.025 (1.005-1.030)
[2019-08-28 12:45] VITALS: TEMP 98
[2019-08-28 12:47] VITALS: BP 124/61; O2SAT 95
== END 2019-08-28 12:39 | disposition home or self-care (01) ==
LOC: ER 10:44
DX: N39.0 Urinary tract infection, site not specified (principal); I10 Essential (primary) hypertension; I30.1 Infective pericarditis; I34.1 Nonrheumatic mitral (valve) prolapse; Z79.01 Long term (current) use of anticoagulants; Z88.5 Allergy status to narcotic agent; Z88.8 Allergy status to other drugs, medicaments and biological substances; Z91.012 Allergy to eggs; Z91.018 Allergy to other foods; Z91.048 Other nonmedicinal substance allergy status
CPT/HCPCS: 81003; 81015; 87077; 87086; 87088; 87186; 99283

== ENCOUNTER 2021-03-29 13:52 | Emergency (ER) | payer OTHER ==
[2021-03-29 16:37] LABS: Urine Blood 1+ (Negative); Urine Glucose Negative (Negative); Urine Protein 1+ (Negative); Urine Specific Gravity 1.015 (1.005-1.030)
[2021-03-29] MEDS ORDERED: MORPHINE 2 MG/ML SYR ONE (16:57)
[2021-03-29] MEDS ORDERED: ONDANSETRON 4 MG/2 ML VIAL ONE (16:57)
[2021-03-29] MEDS ORDERED: CEFTRIAXONE 1000 MG/VIAL ONE (16:57)
[2021-03-29] MEDS ORDERED: PHENAZOPYRIDINE 100MG TAB PO ONE (16:57)
[2021-03-29] MEDS ORDERED: NA CHLORIDE 0.9% 100 ML ONE (16:57)
--- NOTE | 2021-03-29 17:17 | RAD REPORT ---
EXAM DESCRIPTION: CT - Stone Protocol - 03/29/2021 4:53 pm CLINICAL HISTORY: Abd pain;Flank pain COMPARISON: Abdomen Pelvis W Contrast dated 05/08/2016; Abdomen Pelvis W Contrast dated 06/28/2015 TECHNIQUE: Axial 3 mm thick images were obtained without oral or IV contrast. The zzguj-xt-nhjt span s the entirety of the system including uppermost abdomen and lung bases. All CT scans are performed using dose optimization technique as appropriate and may include automated exposure control or mA/KV adjustment according to patient size. FINDINGS: No hydronephrosis is present and no obstructing ureteral calculi. No suspicious renal mass es. Isodense masses and pyelonephritis are not excluded on a stone protocol CT scan. No significant a drenal finding. No urinary bladder suspicious finding. Uterus is absent. Ovaries are absent or atroph ic. Numerous pelvic floor phleboliths are present. Imaged portions of the liver, spleen and pancreas show no suspicious findings on non-contrast imaging . Cholecystectomy clips are present. No abnormal biliary tree dilatation. No dilated bowel loops are areas of bowel wall thickening. Prominent diverticulosis present in the pr oximal sigmoid colon. No acute diverticulitis. Appendicolith is present but no appendicitis findings are seen. There is a moderate stool volume throughout colon. No mass or bulky lymphadenopathy. No new hernia finding. No free air, free fluid or inflammatory stra nding. No significant bony abnormality. Bony degenerative changes match comparison. IMPRESSION: Negative noncontrast CT abdomen and pelvis study for acute or suspicious finding. Isodense masses and pyelonephritis are not excluded on stone protocol technique.
[2021-03-29 17:29] LABS: Absolute Lymphocytes (CBC) 0.9 K/uL (0.7-4.9); Lymphocytes % 11.2 % (15.3-44.8); RBC Red Blood Cell Count 5.55 M/uL (3.86-4.86)
[2021-03-29 17:45] LABS: Albumin 3.7 g/dL (3.4-5.0); Bilirubin Total 0.4 mg/dL (0.2-1.0); Potassium 4.2 mmol/L (3.5-5.1); Protein, Total 7.4 g/dL (6.4-8.2)
[2021-03-29] MEDS ORDERED: CIPROFLOXACIN HCL 500 MG TAB ONE (18:23)
--- NOTE | 2021-03-29 18:31 | ER ---
Nurse's Notes [facility] Name: Kaitlin Lindo Age: 85 yrs Sex: Female : 1935 Arrival Date: 03/29/2021 Time: 13:54 Bed 13 Private MD: Diagnosis: UTI/ Urinary tract infection, site not specified;Dysuria Presentation: 03/29 14:01 Chief complaint: EMS states: pt has a UTI. vg1 14:01 Method Of Arrival: EMS: [facility] vg1 16:07 Chief complaint: Patient states: urinary symptoms began Tuesday night; states urine is vg1 'cloudy' and is having 'chills and ABD pain'. Coronavirus screen: Vaccine status: Patient reports receiving the 2nd dose of the covid vaccine. Client denies travel out of the [place] in the last 14 days. Ebola Screen: Patient negative for fever greater than or equal to 101.5 degrees Fahrenheit, and additional compatible Ebola Virus Disease symptoms. Initial Sepsis Screen: Does the patient meet any 2 criteria? No. Patient's initial sepsis screen is negative. Does the patient have a suspected source of infection? No. Patient's initial sepsis screen is negative. Risk Assessment: Do you want to hurt yourself or someone else? Patient reports no desire to harm self or others. Onset of symptoms was March 27, 2021. 16:07 Acuity: IMANI 3 vg1 Triage Assessment: 16:09 General: Appears comfortable, Behavior is calm, cooperative. Pain: Complains of pain in vg1 abdomen. Historical: - Allergies: 16:09 MICHELLE INHIBITORS; vg1 16:09 Adrenalin; vg1 16:09 Advair Diskus; vg1 16:09 Cozaar; vg1 16:09 Donepezil; vg1 16:09 Eggs; vg1 16:09 Enalapril; vg1 16:09 fenofibrate; vg1 16:09 hydrochlorothiazide; vg1 16:09 MOLD; vg1 16:09 Nitrofurantoin Macrocrystal; vg1 16:09 PECANS; vg1 16:09 PERFUMES; vg1 16:09 Sbsqocm-Wck-Ucp Reductase Inhibitors; vg1 16:09 Toprol XL; vg1 16:09 Trazodone; vg1 - Home Meds: 16:09 Fish Oil Oral 3 tab daily [Active]; Xarelto 20 mg Oral tab 1 tab once daily [Active]; vg1 Benadryl 50 mg as needed for sleep Oral as needed for insomnia [Active]; benzonatate 200 mg Oral cap [Active]; cranberry 500 mg Oral cap daily [Active]; niacin 500 mg Oral Tb24 1 tab once daily [Active]; verapamil 240 mg Oral TbER 1 tab twice a day [Active]; memantine 5 mg Oral tab 1 tabs 2 times per day [Active]; magnesium oxide 500 mg Oral cap [Active]; Linzess 145 mcg Oral cap 1 cap once daily [Active]; - PMHx: 16:09 CARDIAC ARRHYTHMIAS; Hypertension; VIRAL PERICARDITIS; 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 - Social history:: Smoking status: Patient denies any tobacco usage or history of. - Family history:: not pertinent. Screenin:11 Abuse screen: Denies threats or abuse. Nutritional screening: No deficits noted. ap3 Tuberculosis screening: No symptoms or risk factors identified. Fall Risk No fall in past 12 months (0 pts). Secondary diagnosis (15 points) impaired mobility, IV access (20 points). Ambulatory Aid- Crutches/Cane/Walker (15 pts). Gait- Weak (10 pts.). Mental Status- Oriented to own ability (0 pts). Total Martinez Fall Scale indicates High Risk Score (45 or more points). Fall prevention measures have been instituted. Side Rails Up X 2 Placed Close to Nursing Station Frequent Obs/Assessments Occuring. Assessment: 17:10 General: Appears in no apparent distress. comfortable, Behavior is calm, cooperative, ap3 appropriate for age. Pain: Complains of pain in abdomen. Neuro: Level of Consciousness is awake, alert, obeys commands, Oriented to person, place, time, situation, Appropriate for age Gait is unsteady, Speech is normal. Cardiovascular: Patient's skin is warm and dry. Respiratory: Airway is patent Respiratory effort is even, unlabored, Respiratory pattern is regular, symmetrical. : Reports burning with urination, urinary frequency. 18:14 Reassessment: Patient and/or family updated on plan of care and expected duration. Pain ap3 level reassessed. Patient is alert, oriented x 3, equal unlabored respirations, skin warm/dry/pink. Patient states feeling better. Patient states symptoms have improved. Vital Signs: 16:07 BP 147 / 67; Pulse 60; Resp 16; Temp 97.3; Pulse Ox 96% ; Weight 72.57 kg; Height 5 ft. vg1 3 in. (160.02 cm); Pain 0/10; 18:14 BP 105 / 62; Pulse 68; Pulse Ox 99% on R/A; ap3 16:07 Body Mass Index 28.34 (72.57 kg, 160.02 cm) vg1 ED Course: 13:54 Patient arrived in ED. mr 16:09 Triage completed. vg1 16:09 Arm band placed on. vg1 16:13 Patient placed in an exam room, on a stretcher. ll1 16:24 Herbert Presley MD is Attending Physician. [facility] 16:51 Nika Agarwal RN is Primary Nurse. ap3 16:53 CT Stone Protocol In Process Unspecified. EDMS 17:07 Urine Culture Sent. 5 17:07 Comprehensive Metabolic Panel Sent. 5 17:08 Patient has correct armband on for positive identification. Bed in low position. Call 5 light in reach. Side rails up X 1. Warm blanket given. Pulse ox on. NIBP on. 17:08 CBC with Diff Sent. 5 17:08 Initial lab(s) drawn, by ED staff, sent to lab. Urine collected: clean catch specimen, 5 cloudy. 17:10 Inserted saline lock: 20 gauge in right antecubital area, using aseptic technique. ap3 Blood collected. 19:38 No provider procedures requiring assistance completed. IV discontinued, intact, ll3 bleeding controlled, No redness/swelling at site. Pressure dressing applied. Administered Medications: 17:09 Not Given (Patient Refused): Zofran (Ondansetron) 4 mg IVP once; over 2 minutes ap3 17:10 Not Given (Patient Refused): Pyridium (phenazopyridine) 200 mg PO once ap3 17:10 Drug: Rocephin (cefTRIAXone) 2 grams Route: IV; Rate: per protocol; Site: right ap3 antecubital; 17:10 Not Given (Patient Refused): morphine 2 mg IVP once; (PAIN>8) RASS on ADMN: Combtv4, ap3 Very Agttd3, Agttd2, Rstlss1, AlertClm0, Drwsy-1, LtSdtn-2, ModSdtn-3, DpSdtn-4, UnArsble-5 x2 18:25 Drug: Cipro (ciprofloxacin) 500 mg Route: PO; ap3 19:15 Follow up: Response: No adverse reaction ap3 Outcome: 18:31 Discharge ordered by MD. montgomery 19:38 Discharged to home ambulatory. ll3 19:38 Condition: stable 19:38 Discharge instructions given to patient, Instructed on discharge instructions, follow up and referral plans. medication usage, Demonstrated understanding of instructions, follow-up care, medications, Prescriptions given X 2. 19:57 Patient left the ED. ll3 Signatures: Dispatcher [employer] EDMS Herbert Presley MD MD cha Rivera, Julia Treviño [facility] Nika Agarwal RN RN ap3 Sasha Cuevas RN RN lazaro1 Dane Olvera RN RN ll1 Marisol Isaac RN RN ll3
--- NOTE | 2021-03-29 18:32 | EDPHYS ---
Physician Documentation [facility] Name: Kaitlin Lindo Age: 85 yrs Sex: Female : 1935 Arrival Date: 03/29/2021 Time: 13:54 Bed 13 Private MD: MANE Physician Herbert Presley HPI: 03/29 18:25 This 85 yrs old Female presents to ER via EMS with complaints of Urinary ulises Problem. 18:25 The patient presents with urinary symptoms, dysuria, frequency, urgency. Onset: The ulises symptoms/episode began/occurred 3 day(s) ago. Modifying factors: The symptoms are alleviated by nothing, the symptoms are aggravated by nothing. Associated signs and symptoms: Pertinent positives: dysuria, urinary frequency. Severity of symptoms: At their worst the symptoms were mild, in the emergency department the symptoms are unchanged. The patient is not sexually active. The patient has experienced similar episodes in the past, multiple times. Historical: - Allergies: 16:09 MICHELLE INHIBITORS; vg1 16:09 Adrenalin; vg1 16:09 Advair Diskus; vg1 16:09 Cozaar; vg1 16:09 Donepezil; vg1 16:09 Eggs; vg1 16:09 Enalapril; vg1 16:09 fenofibrate; vg1 16:09 hydrochlorothiazide; vg1 16:09 MOLD; vg1 16:09 Nitrofurantoin Macrocrystal; vg1 16:09 PECANS; vg1 16:09 PERFUMES; vg1 16:09 Jlvvebe-Cut-Tti Reductase Inhibitors; vg1 16:09 Toprol XL; vg1 16:09 Trazodone; vg1 - Home Meds: 16:09 Fish Oil Oral 3 tab daily [Active]; Xarelto 20 mg Oral tab 1 tab once daily [Active]; vg1 Benadryl 50 mg as needed for sleep Oral as needed for insomnia [Active]; benzonatate 200 mg Oral cap [Active]; cranberry 500 mg Oral cap daily [Active]; niacin 500 mg Oral Tb24 1 tab once daily [Active]; verapamil 240 mg Oral TbER 1 tab twice a day [Active]; memantine 5 mg Oral tab 1 tabs 2 times per day [Active]; magnesium oxide 500 mg Oral cap [Active]; Linzess 145 mcg Oral cap 1 cap once daily [Active]; - PMHx: 16:09 CARDIAC ARRHYTHMIAS; Hypertension; VIRAL PERICARDITIS; 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 - Social history:: Smoking status: Patient denies any tobacco usage or history of. - Family history:: not pertinent. ROS: 18:25 Constitutional: Negative for fever, chills, and weight loss, Eyes: Negative for injury, ulises pain, redness, and discharge, ENT: Negative for injury, pain, and discharge, Neck: Negative for injury, pain, and swelling, Cardiovascular: Negative for chest pain, palpitations, and edema, Respiratory: Negative for shortness of breath, cough, wheezing, and pleuritic chest pain, Abdomen/GI: Negative for abdominal pain, nausea, vomiting, diarrhea, and constipation, Back: Negative for injury and pain, MS/Extremity: Negative for injury and deformity, Skin: Negative for injury, rash, and discoloration, Neuro: Negative for headache, weakness, numbness, tingling, and seizure, Psych: Negative for depression, anxiety, suicide ideation, homicidal ideation, and hallucinations, Allergy/Immunology: Negative for hives, rash, and allergies, Endocrine: Negative for neck swelling, polydipsia, polyuria, polyphagia, and marked weight changes, Hematologic/Lymphatic: Negative for swollen nodes, abnormal bleeding, and unusual bruising. 18:25 : Positive for urinary symptoms, urinary frequency, small amounts, hematuria, burning with urination, of the suprapubic area. Exam: 18:25 Constitutional: This is a well developed, well nourished patient who is awake, alert, ulises and in no acute distress. Head/Face: Normocephalic, atraumatic. Eyes: Pupils equal round and reactive to light, extra-ocular motions intact. Lids and lashes normal. Conjunctiva and sclera are non-icteric and not injected. Cornea within normal limits. Periorbital areas with no swelling, redness, or edema. ENT: Nares patent. No nasal discharge, no septal abnormalities noted. Tympanic membranes are normal and external auditory canals are clear. Oropharynx with no redness, swelling, or masses, exudates, or evidence of obstruction, uvula midline. Mucous membranes moist. Neck: Trachea midline, no thyromegaly or masses palpated, and no cervical lymphadenopathy. Supple, full range of motion without nuchal rigidity, or vertebral point tenderness. No Meningismus. Chest/axilla: Normal chest wall appearance and motion. Nontender with no deformity. No lesions are appreciated. Cardiovascular: Regular rate and rhythm with a normal S1 and S2. No gallops, murmurs, or rubs. Normal PMI, no JVD. No pulse deficits. Respiratory: Lungs have equal breath sounds bilaterally, clear to auscultation and percussion. No rales, rhonchi or wheezes noted. No increased work of breathing, no retractions or nasal flaring. Abdomen/GI: Soft, non-tender, with normal bowel sounds. No distension or tympany. No guarding or rebound. No evidence of tenderness throughout. Back: No spinal tenderness. No costovertebral tenderness. Full range of motion. Skin: Warm, dry with normal turgor. Normal color with no rashes, no lesions, and no evidence of cellulitis. MS/ Extremity: Pulses equal, no cyanosis. Neurovascular intact. Full, normal range of motion. Neuro: Awake and alert, GCS 15, oriented to person, place, time, and situation. Cranial nerves II-XII grossly intact. Motor strength 5/5 in all extremities. Sensory grossly intact. Cerebellar exam normal. Normal gait. Psych: Awake, alert, with orientation to person, place and time. Behavior, mood, and affect are within normal limits. 18:25 : CVA tenderness, is absent, Bladder: is normal, Sexual behavior: the patient is not sexually active. Vital Signs: 16:07 BP 147 / 67; Pulse 60; Resp 16; Temp 97.3; Pulse Ox 96% ; Weight 72.57 kg; Height 5 ft. vg1 3 in. (160.02 cm); Pain 0/10; 18:14 BP 105 / 62; Pulse 68; Pulse Ox 99% on R/A; ap3 16:07 Body Mass Index 28.34 (72.57 kg, 160.02 cm) vg1 MDM: 16:24 Patient medically screened. [facility] 18:29 Differential diagnosis: urinary tract infection. Data reviewed: vital signs, nurses ulises notes, lab test result(s), CBC, electrolytes, urinalysis, radiologic studies, CT scan. Data interpreted: phototypesetting equipment monitor: not applicable for this patient encounter. rate is 68 beats/min, Pulse oximetry: on room air is 99 %. Test interpretation: by ED physician or midlevel provider:. Counseling: I had a detailed discussion with the patient and/or guardian regarding: the historical points, exam findings, and any diagnostic results supporting the discharge/admit diagnosis, lab results, radiology results, the need for outpatient follow up, for definitive care, a family practitioner. 03/29 16:35 Order name: CBC with Diff; Complete Time: 18:00 [facility] 03/29 16:35 Order name: Comprehensive Metabolic Panel; Complete Time: 18:00 [facility] 03/29 16:35 Order name: Urine Culture [facility] 03/29 16:35 Order name: CT Stone Protocol; Complete Time: 18:00 [facility] 03/29 16:36 Order name: Lipase; Complete Time: 18:00 [facility] 03/29 16:37 Order name: Urine Dipstick-Ancillary; Complete Time: 18:00 [facility] 03/29 16:35 Order name: Urine Dipstick-Ancillary (obtain specimen); Complete Time: 17:07 ulises Administered Medications: 17:09 Not Given (Patient Refused): Zofran (Ondansetron) 4 mg IVP once; over 2 minutes ap3 17:10 Not Given (Patient Refused): Pyridium (phenazopyridine) 200 mg PO once ap3 17:10 Drug: Rocephin (cefTRIAXone) 2 grams Route: IV; Rate: per protocol; Site: right ap3 antecubital; 17:10 Not Given (Patient Refused): morphine 2 mg IVP once; (PAIN>8) RASS on ADMN: Combtv4, ap3 Very Agttd3, Agttd2, Rstlss1, AlertClm0, Drwsy-1, LtSdtn-2, ModSdtn-3, DpSdtn-4, UnArsble-5 x2 18:25 Drug: Cipro (ciprofloxacin) 500 mg Route: PO; ap3 19:15 Follow up: Response: No adverse reaction ap3 Disposition Summary: 03/29/21 18:31 Discharge Ordered Location: Home ulises Problem: new ulises Symptoms: have improved ulises Condition: Stable ulises Diagnosis - UTI/ Urinary tract infection, site not specified ulises - Dysuria ulises Followup: ulises - With: Private Physician - When: 2 - 3 days - Reason: Recheck today's complaints, Continuance of care, Re-evaluation by your physician Discharge Instructions: - Discharge Summary Sheet ulises - Dysuria ulises - Urinary Tract Infection, Adult ulises - Urinary Tract Infection, Adult, [id number] [facility] Forms: - Medication Reconciliation Form ulises - Thank You Letter ulises - Antibiotic Education ulises - Prescription Opioid Use [facility] Prescriptions: - Pyridium 200 mg Oral Tablet - take 1 tablet by ORAL route every 8 hours for 3 days; 9 tablet; Refills: 0, [facility] Product Selection Permitted - Cipro 500 mg Oral Tablet - take 1 tablet by ORAL route every 12 hours for 7 days; 14 tablet; Refills: 0, [facility] Product Selection Permitted Signatures: Dispatcher [employer] Herbert Pickett MD MD cha Prokisch, Amanda, RN RN ap3 Sasha Cuevas RN RN vg1
[2021-03-29 20:05] VITALS: TEMP 97.3
[2021-03-29 20:06] VITALS: BP 105/62; O2SAT 99
== END 2021-03-29 19:57 | disposition home or self-care (01) ==
LOC: ER 13:52
DX: N39.0 Urinary tract infection, site not specified (principal); I10 Essential (primary) hypertension; Z79.01 Long term (current) use of anticoagulants
CPT/HCPCS: 36415; 74176; 76377; 80053; 81003; 83690; 85025; 87086; 87088; J2270; J2405